=== PATIENT | female | born 1950 | race Hispanic/Latino ===

== ENCOUNTER 2016-11-12 10:18 | Emergency (ER) | payer MEDICARE, MEDICAID ==
[~2016-11-12] VITALS: Ht 154.9 cm; Wt 81.4 kg
[~2016-11-12 10:18] MED LIST: ALBU90AE IH; BECL8.7A6 IH; CARV6.252 PO; CHOL500050 PO; DOXA2TAB PO; FLUT15.88 NS; FURO40TA4 PO; GABA-500 PO; GLUC1KIT IJ; INSU100C8 SUBQ; INSU100V7 SUBQ; LOSA25TA21 PO; OMEP20CA11 PO; POLY17PO6 PO; SENN-133 PO; TAMS0.4C29 PO; TOBR5DRO11 OP; TRAM50TA2 PO; [UNRECOGNIZED DRUG - CODE] OP
[2016-11-12 10:20] VITALS: BP 167/59; PULSE 80; RESP 18; O2SAT 98
--- NOTE | 2016-11-12 10:22 | ED.REPORT ---
HPI-Headache Date of Service Nov 12, 2016 ED Provider: Dr. Raphael Pt is a 66 y/o female w/ a hx of IDDM, HTN, CAD, CHF, hyperlipidemia, presenting to the ED via EMS c/o increased right eye pain onset this morning. She has had a right eye infection since the beginning of July of 2016 which has somewhat improved but remains persistent. Her right eye pain today is significantly worse and is causing a EPPERSON and photophobia. She denies fever, chills, nausea, vomiting. Nursing Notes Stated Complaint: HEADACHE Chief Complaint: Headache Nursing Notes Reviewed: Yes Allergies: Coded Allergies: losartan (Verified Allergy, Severe, Weakness,muscle pain, 06/14/16) lovastatin (Unverified Allergy, Severe, MYALGIAS, 06/14/16) naproxen (Verified Allergy, Severe, Rash, 06/14/16) simvastatin (Verified Allergy, Severe, myalgia, 06/14/16) Scheduled Albuterol Sulfate (Proair Respiclick) 90 Mcg Aer.pow.ba 90 MCG IH 4-6 hours Carvedilol (Carvedilol) 6.25 Mg Tablet 6.25 MG PO BID Cholecalciferol (Vitamin D3) (Vitamin D) 50,000 Unit Capsule 50,000 UNIT PO WEEKLY Doxazosin Mesylate (Doxazosin Mesylate) 2 Mg Tablet 2 TAB PO HS Fluticasone Propionate (Fluticasone Propionate) 50 Mcg/Actuation [place].susp 15.8 ML NS DAILY Furosemide (Furosemide) 40 Mg Tablet 20 MG PO DAILY Gabapentin (Gabapentin) 100 Mg Capsule 100 MG PO TID Insulin Aspart (NovoLOG U100 Insulin Vial) 100 U/Ml U 3-10 UNIT SUBQ TIDAC SLIDING SCALE Insulin Glargine (Lantus U100 Insulin Vial) 100 Unit/Ml Vial 30 UNIT SUBQ BID Losartan Potassium (Losartan Potassium) 25 Mg Tablet 25 MG PO DAILY Omeprazole (Omeprazole) 20 Mg Capsule.dr 20 MG PO BID Polyethylene Glycol 3350 (Miralax) 17 Gm Powd.pack 17 GM PO TID Tamsulosin ER (Tamsulosin ER) 0.4 Mg Cap.er.24h 0.4 MG PO HS Scheduled PRN Beclomethasone Dipropionate (Qvar) 8.7 Gm Aer.w.adap 8.7 GM IH BID PRN PRN For Shortness of Breath Sennosides (Senna) 8.6 Mg Tablet 2 TAB PO PRN For Constipation Tramadol (Tramadol) 50 Mg Tablet 100 MG PO Q8H PRN PRN For Pain Miscellaneous Medications Glucagon,Human Recombinant (Glucagon Emergency Kit) 1 Mg Kit 1 MG IJ Natamycin (Natacyn) 15 Ml Drops.susp 15 ML OP Tobramycin/Dexamethasone (Tobramycin-Dexameth Ophth Susp) 5 Ml Drops.susp 5 ML OP General Time Seen by MD: 10:21 Chief Complaint Headache Hx Obtained From: Patient, Front Maker, EMS Arrived By: Ambulance Sudden in Onset?: No Onset Occurred: 1 - 4 hours ago Symptom Duration: Since onset Location: : Generalized Quality: Painful Severity: Current: Moderate Severity: Maximum: Severe Recent Healthcare: Previous diagnosis Similar Sx Previous: Yes Past Medical History Past Medical History LVH Diabetes Mellitus - neuropathy, CKD PVD Cerebrovascular disease Vertebral artery stenosis Peripheral vascular disease Restless leg syndrome Rheumatoid arthritis Fibromyalgia Osteoarthritis Carotid stenosis Sleep apnea Reports: Congestive heart failure, Coronary artery disease, Diabetes mellitus, GERD, Hyperlipidemia, Hypertension Past Surgical History Cardiac cath Right mastoidectomy Foot repair x2 Reports: Appendectomy, , Cataract surgery, Cholecystectomy, Hysterectomy Family History Heart issues run in the family Smoking History Never Smoker Social History Alcohol Use: Denies alcohol use Drug Use: Denies drug use Other Social History: Local resident Ambulatory Status Independent Review of Systems Constitutional: Denies: Chills, Fever Eyes: Reports: Eye pain right, Photophobia GI: Denies: Abdominal pain, Diarrhea, Nausea, Vomiting Neurologic: Reports: Headache, Denies: Focal weakness, Numbness Complete sys rev & neg: except as marked. Physical Exam Initial Vital Signs Vital Signs (First) Date Time Temp Pulse Resp B/P Pulse Ox O2 Delivery O2 Flow Rate FiO2 11/12/16 10:20 37.1 80 18 167/59 98 Room Air Initial VS: Reviewed, Vital signs abnormal ENT: Mucous membranes moist, Conjunctiva normal, No scleral icterus Respiratory: Breath sounds normal, Clear to auscultation, No respiratory distress Cardiovascular: Regular rate & rhythm, Heart sounds normal, Intact distal pulses Abdomen / GI: Soft, Non-tender Extremities: Vascular intact, Neuro intact, No swelling, No tenderness Skin: Warm, Dry, No cyanosis Psychiatric: Mood/affect normal, Behavior normal, Normal thought content General/Constitutional: Awake, Alert, Cooperative, Not toxic appearing Distress / Hydration: Positive: Distress mild Head / Eyes: Atraumatic, Normocephalic, EOMI Right eye: Erythematous, excessive tearing, cornea cloudy, obvious ulceration over the pupil area, proptotic Anterior chamber cloudy and hazy Chemosis throughout Punctate area uptake of fluorescein midline of the iris Eye pressures on right: 21, 21, 23 Neck: Atraumatic, Supple, No meningismus, Full range of motion Neurologic: Oriented X3, Speech NL, No motor deficits, No sensory deficits Interpretation & Diagnostics Lab Results Interpretation Result Diagram: 11/12/16 1042 11/12/16 1042 Test 11/12/16 10:42 White Blood Count 5.1th/mm3 (3.8-10.1) Red Blood Count 3.80mil/mm3 (3.90-5.20) Hemoglobin 11.3g/dL (12.0-15.6) Hematocrit 36.3% (35.0-46.0) Mean Corpuscular Volume 95.5fL (81-100) Mean Corpuscular Hemoglobin 29.7pg (27.0-35.0) Mean Corpuscular Hemoglobin Concent 31.1% (32.0-37.0) Red Cell Distribution Width 13.8% (12.3-15.4) Platelet Count 323bil/L (150-400) Neutrophils (%) (Auto) 68.1% (40-74) Lymphocytes (%) (Auto) 22.4% (14-46) Monocytes (%) (Auto) 6.5% (4-12) Eosinophils (%) (Auto) 1.8% (0-5) Basophils (%) (Auto) 1.0% (0-3) Erythrocyte Sedimentation Rate 76mm/hr (0-40) Sodium Level 134mEq/L (134-144) Potassium Level 5.1mEq/L (3.5-5.2) Chloride Level 98mEq/L (97-108) Carbon Dioxide Level 21mmol/L (18-29) Blood Urea Nitrogen 39mg/dL (8-27) Creatinine 1.57mg/dL (0.57-1.00) Estimat Glomerular Filtration Rate 48mL/min (>59) Glucose Level 241mg/dL (60-99) Calcium Level 9.1mg/dL (8.5-10.1) C-Reactive Protein 0.2mg/dL (0.0-0.5) CT Head Interpretation IMPRESSION: 1. No acute intracranial hemorrhage or evidence of diffuse cerebral edema. 2. Mild chronic small vessel ischemic changes. 3. Moderate parenchymal volume loss. 4. Mild maxillary sinus disease. Dictated by: Larry Russell M.D. on 11/12/2016 at 11:37 Approved by: Larry Russell M.D. on 11/12/2016 at 11:39 ADDENDUM: COMPARISON: [facility], CT, BRAIN W/O CONTRAST, 09/24/2011, 10:40. Additional clinical information regarding the patient's history was provided by Dr. Raphael. The patient has significant abnormality involving the right orbit with probable infection. With this information in mind, there is moderate right-sided perirectal edema with enlargement of the right lacrimal gland. No definite abnormality involving the ocular globe is evident. There is no lens displacement or intraocular hemorrhage appreciated. The intraconal and extraconal spaces of the retroconal region demonstrate no significant edema or loculated fluid collections. Conclusion: Mild periorbital edema/swelling without retroconal abscess or inflammation evident. Note: These findings were discussed with Dr. Raphael at 1249 hours (PST) on 11/12/16. Dictated by: Larry Russell M.D. on 11/12/2016 at 11:47 Approved by: Larry Russell M.D. on 11/12/2016 at 11:50 Study: Head CT no contrast Interpretation / Wet Read by: Interpret - Radiologist, Discussed w radiologist Re-Eval/Medical Decision Med Decision/Clinical Course Patient comes in with a headache which seems to be directly associated with her eye. This is not acute angle-closure glaucoma, she does have extensive infection in the eye although this sounds against chronic, overall it does not seem like endophthalmitis however given the severity of the findings, more resource intensive workup was performed. Her vital signs have normalized, it does not sound like a subarachnoid hemorrhage, there is no emergent finding in the imaging. The patient's primary central office operator supervisor was consulted and agrees to see the patient in clinic immediately after discharge from the ER. Consultation : Consulted With: Viscera Washer Call Returned at: 13:30 Healthcare Analyst: Agrees with gabriela Agrees with plan Note: Discussed case with Dr. Jerry Garsia. He does not believe this sounds like endophthalmitis. He will see the patient in clinic after discharge from the ED. She can drive over now. Counseled Regarding: Diagnosis, Lab results, Need for follow-up, When/why to return to ED Discharge & Departure Impression: Primary Impression: Headache Headache type: unspecified Headache chronicity pattern: acute headache Intractability: not intractable Qualified Code: R51 - Headache Disposition: Home Discharge Condition All VS Reviewed: Yes Condition: Stable Patient Instructions: Acute Headache (ED) Additional Instructions: I spoke with central office operator supervisor Dr. Garsia of [facility] about your case today. He would like to see you today for a thorough, specialized eye exam. You should go there directly after you leave the ER. He believes it is safe for you to drive there. Referrals: Fausto Shearer MD (PCP) [facility] Attestation Portions of this note were transcribed by Darren Duncan. I, Dr. Raphael, personally performed the history, physical exam and medical decision-making; I reviewed and confirmed the accuracy of the information in the transcribed note. Signed by Rowan Ceballos, 11/12/16 - 1030 copies to: [facility]; Fausto Shearer MD, Timothy S DO Nov 12, 2016 10:22 DARREN DUNCAN Nov 12, 2016 10:30
[2016-11-12] MEDS ORDERED: Ondansetron 2 mg/mL 2 mL Inj IVPUSH PRN (10:50)
[2016-11-12 10:52] LABS: EOSINOPHILS % (AUTO) 1.8 % (0-5); MONOCYTES % (AUTO) 6.5 % (4-12); Mean Corpuscular Hemoglobin 29.7 pg (27.0-35.0); Mean Corpuscular Volume 95.5 fL (81-100); NEUTROPHILS % (AUTO) 68.1 % (40-74); Platelet Count 323 bil/L (150-400)
[2016-11-12] MEDS ORDERED: 0.9% Sodium Chloride Inhalation Solution ONE (11:26)
[2016-11-12] MEDS ORDERED: Fluorescein 0.6 mg Ophthalmic Strip ONE (11:26)
[2016-11-12] MEDS ORDERED: Tetracaine 0.5% 4 mL Ophthalmic Solution ONE (11:27)
[2016-11-12 11:35] LABS: ERYTHROCYTE SEDIMENTATION RATE 76 mm/hr (0-40)
--- NOTE | 2016-11-12 12:40 | DRSVH ---
PROCEDURE: CT BRAIN WITHOUT CONTRAST ([id number]) INDICATIONS: right sided headache TECHNIQUE: Noncontrast 4.5 mm thick angled axial sections acquired from the foramen magnum to the vertex, with c oronal reformats. COMPARISON: [facility], CT, BRAIN W/O CONTRAST, 10/23/2011, 21:18. FINDINGS: Image quality: Diagnostic. Brain: There is no acute intra-axial or extra-axial hemorrhage. No extra-axial fluid collection is i dentified. There is no midline shift or mass effect. The orbits are grossly unremarkable. No large areas of diffusely decreased attenuation are evident within the brain to suggest diffuse cer ebral edema. Subtle areas of low attenuation within the periventricular white matter is noted. The ventricles and cortical sulci are prominent, particularly involving the bilateral frontal regions , similar to the prior study. Bones: Calvarium and visualized facial bones are grossly intact. No mucosal thickening is noted inv olving the bilateral maxillary sinuses. Postoperative changes of the right mastoid air cells are not ed. Otherwise, the remainder of the paranasal sinuses in the left mastoid air cells are clear. IMPRESSION: 1. No acute intracranial hemorrhage or evidence of diffuse cerebral edema. 2. Mild chronic small vessel ischemic changes. 3. Moderate parenchymal volume loss. 4. Mild maxillary sinus disease. Dictated by: Larry Russell M.D. on 11/12/2016 at 11:37 Approved by: Larry Russell M.D. on 11/12/2016 at 11:39
[2016-11-12 13:02] VITALS: BP 154/42; PULSE 74; RESP 16; O2SAT 98
[2016-11-12 14:23] VITALS: BP 154/34; PULSE 67; RESP 16; O2SAT 99
[2016-11-19] MEDS ORDERED: ASPI325T32 PO (17:04)
[2016-11-19] MEDS ORDERED: HOMA5DRO10 RIGHT_EYE (17:07)
[2016-11-19] MEDS ORDERED: ACYC400T2 PO (17:07)
[2016-11-19] MEDS ORDERED: VIGAMOX RIGHT_EYE (17:07)
== END 2016-11-12 14:27 | disposition home or self-care (01) ==
LOC: SED 10:18 → EDBD 10:18 → SED 14:27
DX: R51 Headache (principal); I13.0 Hypertensive heart and chronic kidney disease with heart failure and stage 1 through stage 4 chronic kidney disease, or unspecified chronic kidney disease; E11.59 Type 2 diabetes mellitus with other circulatory complications; I50.9 Heart failure, unspecified; E11.22 Type 2 diabetes mellitus with diabetic chronic kidney disease; N18.9 Chronic kidney disease, unspecified; E11.40 Type 2 diabetes mellitus with diabetic neuropathy, unspecified; I25.10 Atherosclerotic heart disease of native coronary artery without angina pectoris; K21.9 Gastro-esophageal reflux disease without esophagitis; E78.5 Hyperlipidemia, unspecified; M06.9 Rheumatoid arthritis, unspecified; M79.7 Fibromyalgia; Z86.73 Personal history of transient ischemic attack (TIA), and cerebral infarction without residual deficits; Z79.4 Long term (current) use of insulin; Z88.8 Allergy status to other drugs, medicaments and biological substances
CPT/HCPCS: 36415; 70450; 80048; 85025; 85651; 86140; 96374; 96375; 96376; 99285; J2270; J2405

== ENCOUNTER 2017-03-21 15:51 | Emergency (ER) | payer MEDICARE, MEDICAID ==
[~2017-03-21] VITALS: Ht 154.9 cm; Wt 80.9 kg
[~2017-03-21 15:51] MED LIST changes: +ACYC400T2 PO; +ASPI325T32 PO; +HOMA5DRO10 RIGHT_EYE; -TAMS0.4C29 PO; +VIGAMOX RIGHT_EYE
[2017-03-21 15:55] VITALS: BP 184/91; PULSE 69; RESP 20; O2SAT 100
--- NOTE | 2017-03-21 18:13 | ED.REPORT ---
HPI-Dyspnea / Wheezing Date of Service Mar 21, 2017 ED Provider: Daniel Ramos MD Pt is a 66 year old female with a history of DM, HTN, CHF, GERD, hyperlipidemia , CAD, appendectomy, cholecystectomy, and renal insufficiency who presents to the ED complaining of increased SOB onset yesterday night. She c/o fatigue, decreased appetite, chills in her lower extremities, epigastric pressure, and weakness. Pt reports that the pressure radiates to her back. She denies nausea, diaphoresis, fever, and any other symptoms. Pt reports that her symptoms are currently relieved. Per pt, her symptoms are relieved with walking. She reports cough, but she states that it was present on 03/12/17 when she presented to her PCP. Pt was prescribed Qvar, and she reports that she has not taken her Qvar due to elevated blood pressure and she was advised to not use the Qvar until her blood pressure normalized. Nursing Notes Stated Complaint: BREATHING PROBLEMS Chief Complaint: Respiratory Complaints Nursing Notes Reviewed: Yes ([employer], [employer] not reconciled) Allergies: Coded Allergies: losartan (Verified Allergy, Severe, Weakness,muscle pain, 11/19/16) lovastatin (Unverified Allergy, Severe, MYALGIAS, 11/19/16) naproxen (Verified Allergy, Severe, Rash, 11/19/16) simvastatin (Verified Allergy, Severe, myalgia, 11/19/16) Scheduled Acyclovir (Acyclovir) 400 Mg Tablet 400 MG PO TID Albuterol Sulfate (Proair Respiclick) 90 Mcg Aer.pow.ba 90 MCG IH 4-6 hours Aspirin (Aspirin) 325 Mg Tablet 325 MG PO DAILY Carvedilol (Carvedilol) 6.25 Mg Tablet 6.25 MG PO BID Cholecalciferol (Vitamin D3) (Vitamin D) 50,000 Unit Capsule 50,000 UNIT PO WEEKLY Doxazosin Mesylate (Doxazosin Mesylate) 2 Mg Tablet 2 TAB PO HS Fluticasone Propionate (Fluticasone Propionate) 50 Mcg/Actuation [place].susp 15.8 ML NS DAILY Furosemide (Furosemide) 40 Mg Tablet 40 MG PO DAILY Gabapentin (Gabapentin) 100 Mg Capsule 100 MG PO TID Homatropine HBr (Homatropine Hydrobromide) 5 Ml Drops 5 ML RIGHT_EYE BID Insulin Aspart (NovoLOG U100 Insulin Vial) 100 U/Ml U 3-10 UNIT SUBQ TIDAC SLIDING SCALE Insulin Glargine (Lantus U100 Insulin Vial) 100 Unit/Ml Vial 30 UNIT SUBQ BID Losartan Potassium (Losartan Potassium) 25 Mg Tablet 25 MG PO DAILY Losartan Potassium (Losartan Potassium) 25 Mg Tablet 25 MG PO DAILY Take 2 tabs daily for dose of 50mg daily. In [place] Please Moxifloxacin Ophth Soln (Vigamox Ophth Soln) 3 Ml Soln 1 DROP RIGHT_EYE QID Omeprazole (Omeprazole) 20 Mg Capsule.dr 20 MG PO BID Polyethylene Glycol 3350 (Miralax) 17 Gm Powd.pack 17 GM PO TID Scheduled PRN Beclomethasone Dipropionate (Qvar) 8.7 Gm Aer.w.adap 8.7 GM IH BID PRN PRN For Shortness of Breath Sennosides (Senna) 8.6 Mg Tablet 2 TAB PO PRN For Constipation Tramadol (Tramadol) 50 Mg Tablet 100 MG PO Q8H PRN PRN For Pain Miscellaneous Medications Glucagon,Human Recombinant (Glucagon Emergency Kit) 1 Mg Kit 1 MG IJ Natamycin (Natacyn) 15 Ml Drops.susp 15 ML OP Tobramycin/Dexamethasone (Tobramycin-Dexameth Ophth Susp) 5 Ml Drops.susp 5 ML OP General Time Seen by MD: 18:06 Chief Complaint Shortness of breath Hx Obtained From: Patient Arrived By: Walk-in Sudden in Onset?: No Onset Occurred: Yesterday Symptom Duration: Since onset Location: : Back Quality: Pressure Severity: Current: Moderate Severity: Maximum: Moderate Recent Healthcare: Recent doctor visit Similar Sx Previous: No Past Medical History Past Medical History LVH neuropathy, CKD PVD Cerebrovascular disease Vertebral artery stenosis Peripheral vascular disease Restless leg syndrome Rheumatoid arthritis Fibromyalgia Osteoarthritis Carotid stenosis Sleep apnea Reports: Congestive heart failure, Coronary artery disease, Diabetes mellitus, GERD, Hyperlipidemia, Hypertension Reports: Renal insufficiency Past Surgical History Cardiac cath Right mastoidectomy Foot repair x2 Hernia Reports: Appendectomy, , Cataract surgery, Cholecystectomy, Hysterectomy Family History Heart issues run in the family Smoking History Never Smoker Social History Alcohol Use: Denies alcohol use Drug Use: Denies drug use Other Social History: Good social support, Local resident Ambulatory Status Independent Review of Systems + decreased appetite Constitutional: Reports: Chills, Fatigue, Weakness - generalized, Denies: Fever Respiratory: Reports: Non-productive cough, Shortness of breath Musculoskeletal: Reports: Back pain Skin: Denies Diaphoresis Complete sys rev & neg: except as marked. GI: Reports: Abdominal pain (epigastric), Denies: Nausea Physical Exam Initial Vital Signs Vital Signs (First) Date Time Temp Pulse Resp B/P Pulse Ox O2 Delivery O2 Flow Rate FiO2 03/21/17 15:55 36.8 69 20 184/91 100 Room Air Initial VS: Reviewed, Vital signs abnormal (HTN) Head / Eyes: Atraumatic, Normocephalic Abdomen / GI: Soft, Non-tender Extremities: Vascular intact, Neuro intact Skin: Warm, Dry, No cyanosis Neurologic: Alert, Oriented, Nonfocal Psychiatric: Mood/affect normal, Behavior normal General/Constitutional: Awake, No acute distress Fatigued Neck: Atraumatic, Full range of motion Respiratory / Chest: Atraumatic, Breath sounds NL, Breath sounds = bilat Cardiovascular: Heart rate NL, Regular rhythm, Heart sounds NL Interpretation & Diagnostics Lab Results Interpretation Result Diagram: 03/21/17 1820 03/21/17 1820 Test 03/21/17 18:20 03/21/17 18:42 03/21/17 19:28 White Blood Count 6.0th/mm3 (3.8-10.1) Red Blood Count 3.06mil/mm3 (3.90-5.20) Hemoglobin 9.5g/dL (12.0-15.6) Hematocrit 30.6% (35.0-46.0) Mean Corpuscular Volume 100.0fL (81-100) Mean Corpuscular Hemoglobin 31.0pg (27.0-35.0) Mean Corpuscular Hemoglobin Concent 31.0% (32.0-37.0) Red Cell Distribution Width 13.0% (12.3-15.4) Platelet Count 249bil/L (150-400) Neutrophils (%) (Auto) 61.7% (40-74) Lymphocytes (%) (Auto) 28.6% (14-46) Monocytes (%) (Auto) 6.7% (4-12) Eosinophils (%) (Auto) 2.0% (0-5) Basophils (%) (Auto) 0.8% (0-3) Sodium Level 137mEq/L (134-144) Potassium Level 5.0mEq/L (3.5-5.2) Chloride Level 102mEq/L (97-108) Carbon Dioxide Level 23mmol/L (18-29) Blood Urea Nitrogen 45mg/dL (8-27) Creatinine 2.04mg/dL (0.57-1.00) Estimat Glomerular Filtration Rate 35mL/min (>59) Glucose Level 167mg/dL (60-99) Calcium Level 8.7mg/dL (8.5-10.1) Magnesium Level 2.2mg/dL (1.6-2.6) Total Bilirubin 0.2mg/dL (0.0-1.2) Aspartate Amino Transf (AST/SGOT) 23U/L (0-50) Alanine Aminotransferase (ALT/SGPT) 13U/L (0-32) Alkaline Phosphatase 97U/L (25-165) Troponin T < 0.010ug/L (0.0-0.011) Total Protein 7.7g/dL (6.4-8.4) Albumin 3.4g/dL (3.4-5.0) Procalcitonin 0.04ng/mL (0.00-0.08) Hold [place] Top Tube Received (Received) Urine Color Straw (YELLOW) Urine Appearance Clear (CLEAR,HAZY) Urine pH 5.5 (5.0-8.0) Urine Specific [place] 1.010 (1.003-1.035) Urine Protein 100mg/dL (NEG,TRACE) Urine Glucose (UA) 100mg/dL (NEGATIVE) Urine Ketones Negativemg/dL (NEGATIVE) Urine Occult Blood Small (NEGATIVE) Urine Nitrite Negative (NEGATIVE) Urine Bilirubin Negative (NEGATIVE) Urine Urobilinogen Normalmg/dL (NORMAL) Urine Leukocyte Esterase Negative (NEGATIVE) Urine RBC 3-10/hpf (0-2) Urine WBC 0-5/hpf (0-5) Urine Epithelial Cells Few/hpf (NONE-MOD) Urine Crystals None seen (NONE SEEN) Urine Bacteria Few/hpf (NONE-FEW) Urine Hyaline Casts None/lpf (NONE) Urine Granular Casts None seen (NONE SEEN) Urine Waxy Casts None seen (NONE SEEN) Urine Red Blood Cell Casts None seen (NONE SEEN) Urine White Blood Cell Casts None seen (NONE SEEN) Urine Mucus None seen (None Seen) Urine Trichomonas None seen (NONE SEEN) Urine Yeast None (NONE SEEN) Urinalysis Comment None Urine Culture Reflexed Not indicated Lab Results Interpretation: CBC chronic anemia CMP chronic renal insufficiency, not appreciable change from October Troponin negative (16 hours after symptoms onset) Lipase normal ECG Interpretation Time: 18:43 Interpreted by: ED physician Normal ECG Interpretation: Normal ECG w/ rate of... (71) X-Ray Chest Interpretation Chest Xray Interpretation: IMPRESSION: No source of shortness of breath is found. Dictated by: Afshin Doan M.D. on 03/21/2017 at 18:36 View: Portable, 1 view Interpretation / Wet Read by: Interpret - Radiologist Re-Eval/Medical Decision Med Decision/Clinical Course This is a 66-year-old female presents complaining of a complaint of fatigue, some epigastric "pressure" and a slight sense of shortness of breath. She reports yesterday that she was significantly fatigued, but today this morning got worse. She became concerned and decided to come to the emergency department , reports while in the waiting room all symptoms resolved. It is no exertional component, fact walking made it feel better. There is no fever, chill, there is a trace chronic cough is unchanged and worsen. She denies chest discomfort but does point to the epigastric area. She is no history of GI bleed, reports is different than dyspepsia. She is status post prior cholecystectomy. On exam she is hypertensive, but otherwise well-appearing. Lungs are clear, she demonstrate no tachypnea or dyspnea and suctioning well. Heart tones are normal. She has no epigastric or right upper quadrant or abdominal tenderness on clinical exam. Labs are notable for renal insufficiency, but otherwise unremarkable. EKG is normal. Chest x-rays normal. The patient remained asymptomatic. At this point it is definitive cause of her symptoms is not been identified. She is significantly hypertensive, but is not clear that this is related to her symptoms. She received her evening antihypertensive. We discussed options she reports she still been having moderate hypertension, so increase her losartan back to 50 mg a day. Is listed as an allergy, but is not a true allergy she reported she got some leg cramps at one point and was a thought it might be the losartan so stable cut her dose in half-but she has been tolerating it well. At time of discharge her blood pressures improved, she is asymptomatic. Routine and return precautions reviewed. Source of Hx: Old records Re-Evaluation/Progress #1: Time of Eval: 20:00 Re-Evaluation/Progress Note: Pt rechecked. Informed pt of x-ray results and reviewed medication list. All questions addressed. Re-Evaluation/Progress #2: Time of Eval: 20:25 Re-Evaluation/Progress Note: Pt rechecked. Informed pt of plan for discharge. Pt understands and agrees with plan for discharge. F/U instructions and RTER warnings given. All questions addressed. Differential Diagnosis: Negative: Acute coronary syndrome, COPD exacerbation, Carbon monoxide poisoning, Cardiogenic shock, Congestive heart failure, Dysrhythmia, Hypertensive emergency (patient hypertensive, but asymptomatic in the department - no evidence of hypertensive emergency), Hyperventilation, Myocardial infarction, Pneumonia, Pneumothorax, Pulmonary embolism, Respiratory failure, Respiratory insufficiency, Upper resp infection Counseled Regarding: Diagnosis, Lab results, Need for follow-up, When/why to return to ED Discharge & Departure Impression: Primary Impression: Fatigue Fatigue type: unspecified Qualified Code: R53.83 - Other fatigue Additional Impressions: Shortness of breath HTN (hypertension) Hypertension type: essential hypertension Qualified Code: I10 - Essential ( primary) hypertension Disposition: Home Discharge Condition All VS Reviewed: Yes Condition: Stable Additional Instructions: 1. A dangerous cause of the fatigue, shortness of breath, and epigastric discomfort experienced earlier was not identified. 2. Her blood tests continued to show component of renal insufficiency, but is unchanged from October of this year-but no new or concerning findings. 3. Your blood pressure was very elevated however, age continue to monitor. For the time being I recommend increasing the losartan from 25 mg once a day, back up to 50 mg once a day. (If you develop the leg cramps who had previously, and you can go ahead and discontinue) 4. If you develop new or worsening symptoms return to the emergency department. 1. humza causa peligrosa de la fatiga, dificultad para respirar y malestar epig strico experimentado anteriormente no fue identificado. 2. itz anlisis de huber continan Mostrar componente de insuficiencia renal, nish es sin cambios desde marzo de tiffanie ao-nish no nuevos o sobre los resultados. 3. byers presin arterial era muy elevada, sin embargo, era seguir vigilando. Por el momento que te recomiendo aumentar el losartan 25 mg humza vez al da, de nuevo hasta 50 mg humza vez al da. (Si desarrollas los calambres en las piernas que laura previamente, y puede seguir adelante y dejar de) 4. Si presenta nueva o que empeora los sntomas volver al servicio de urgencias. Referrals: Fausto Shearer MD (PCP) Scribe Attestation Portions of this note were transcribed by Ly Deng. I, Dr. Ramos personally performed the history, physical exam and medical decision-making; I reviewed and confirmed the accuracy of the information in the transcribed note. Signed by: Rowan Vigil, 03/21/17. copies to: Fausto Shearer MD, Matthew F MD Mar 21, 2017 18:13 Ly V[place] Mar 21, 2017 18:33
--- NOTE | 2017-03-21 18:38 | DRSVH ---
PROCEDURE: X-RAY CHEST, TWO VIEWS ([id number]) INDICATIONS: sob TECHNIQUE: 2 views of the chest were acquired. COMPARISON: None. FINDINGS: Surgical changes and devices: None. Lungs and pleura: No pleural effusions or pneumothorax. Lungs are clear. Mediastinum: Mediastinal contours are normal. Heart size is normal. Bones and chest wall: No suspicious bony abnormalities. Soft tissues appear unremarkable. IMPRESSION: No source of shortness of breath is found. Dictated by: Afshin Doan M.D. on 03/21/2017 at 18:36 Approved by: Afshin Doan M.D. on 03/21/2017 at 18:37
[2017-03-21 19:00] LABS: BASOPHILS % (AUTO) 0.8 % (0-3); MONOCYTES % (AUTO) 6.7 % (4-12); NEUTROPHILS % (AUTO) 61.7 % (40-74); Platelet Count 249 bil/L (150-400)
[2017-03-21 19:09] VITALS: BP 206/60; PULSE 69; RESP 14; O2SAT 98
[2017-03-21 19:11] LABS: Magnesium 2.2 mg/dL (1.6-2.6)
[2017-03-21 19:19] LABS: TROPONIN T < 0.010 ug/L (0.0-0.011)
[2017-03-21 19:30] VITALS: BP 196/66; PULSE 68; RESP 22; O2SAT 98
[2017-03-21 19:46] LABS: APPEARANCE,URINE CLEAR (CLEAR,HAZY); COLOR,URINE STRAW (YELLOW); OCCULT BLOOD,URINE SMALL (NEGATIVE); PH,URINE 5.5 (5.0-8.0); UROBILINOGEN,URINE NORMAL (NORMAL)
[2017-03-21 20:21] VITALS: BP 145/74; PULSE 65; RESP 20; O2SAT 96
[2017-03-21] MEDS ORDERED: LOSA25TA21 PO (20:22)
[2017-03-21 20:53] VITALS: BP 189/58; PULSE 70; RESP 20; O2SAT 99
== END 2017-03-21 20:58 | disposition home or self-care (01) ==
LOC: SED 15:51
DX: R53.83 Other fatigue (principal); R06.02 Shortness of breath; I13.0 Hypertensive heart and chronic kidney disease with heart failure and stage 1 through stage 4 chronic kidney disease, or unspecified chronic kidney disease; I50.9 Heart failure, unspecified; I25.10 Atherosclerotic heart disease of native coronary artery without angina pectoris; E11.40 Type 2 diabetes mellitus with diabetic neuropathy, unspecified; E11.22 Type 2 diabetes mellitus with diabetic chronic kidney disease; N18.9 Chronic kidney disease, unspecified; K21.9 Gastro-esophageal reflux disease without esophagitis; E78.5 Hyperlipidemia, unspecified; Z90.710 Acquired absence of both cervix and uterus; Z79.82 Long term (current) use of aspirin; Z79.4 Long term (current) use of insulin; Z88.8 Allergy status to other drugs, medicaments and biological substances